=== PATIENT | female | born 1990 | race Caucasian/White ===

== ENCOUNTER 2025-01-18 13:47 | Emergency (ER) | payer OTHER | END 2025-01-18 16:22 | disposition home or self-care (01) | LOC: MW.ED 13:47 | DX: B34.9 Viral infection, unspecified (principal); E03.9 Hypothyroidism, unspecified; Z79.890 Hormone replacement therapy; Z79.899 Other long term (current) drug therapy; Z88.2 Allergy status to sulfonamides | CPT/HCPCS: 71046; 87428; 87651; 94640; 99284; J7620; A9270-GY ==